=== PATIENT | female | born 1980 | race Caucasian/White ===

== ENCOUNTER 2019-08-01 23:12 | Emergency (ER) | payer BC ==
--- NOTE | 2019-08-01 23:37 | ER Document Report ---
ED General - General Chief Complaint: Shoulder Pain Stated Complaint: LEFT SHOULDER PAIN Time Seen by Provider: 08/01/19 23:36 TRAVEL OUTSIDE OF THE [place] IN LAST 30 DAYS: No - HPI Patient complains to provider of: left shoulder pain Notes: 39 y/o presenting to ED for evaluation of left shoulder pain for 1-2 months w/o known injury she notes pain started w/ overhead movements and now is present nearly constantly w/ any movement no fever, redness of skin she notes she has significant pain w/ any type of movement of the shoulder but is worse when she moves the arm forward or away from her body no elbow pain no actual injury - Related Data Allergies/Adverse Reactions: No Known Allergies Allergy (Unverified 08/01/19 23:19) Past Medical History - Social History Smoking Status: Current Every Day Smoker Chew tobacco use (# tins/day): No Frequency of alcohol use: Occasional Drug Abuse: None Family History: Reviewed & Not Pertinent Patient has suicidal ideation: No Patient has homicidal ideation: No Review of Systems - Review of Systems Constitutional: No symptoms reported EENT: No symptoms reported Cardiovascular: No symptoms reported Respiratory: No symptoms reported Gastrointestinal: No symptoms reported Genitourinary: No symptoms reported Female Genitourinary: No symptoms reported Musculoskeletal: Other - left shoulder pain Skin: No symptoms reported Hematologic/Lymphatic: No symptoms reported Neurological/Psychological: No symptoms reported Physical Exam - Vital signs Vitals: Temp Pulse Resp BP Pulse Ox 97.8 F 100 20 174/100 H 100 08/01/19 23:15 08/01/19 23:15 08/01/19 23:15 08/01/19 23:15 08/01/19 23:15 Interpretation: Normal - General General appearance: Appears well, Alert - HEENT Head: Normocephalic, Atraumatic Eyes: Normal Pupils: PERRL - Respiratory Respiratory status: No respiratory distress Chest status: Nontender Breath sounds: Normal Chest palpation: Normal - Cardiovascular Rhythm: Regular Heart sounds: Normal auscultation Murmur: No - Abdominal Inspection: Normal Distension: No distension Bowel sounds: Normal Tenderness: Nontender Organomegaly: No organomegaly - Back Back: Normal, Nontender - Extremities General upper extremity: Normal inspection, Nontender, Normal color, Normal ROM, Normal temperature General lower extremity: Normal inspection, Nontender, Normal color, Normal ROM, Normal temperature, Normal weight bearing. No: Bryce's sign Shoulder: Other - Lt shoulder - limited ROM secondary to pain. no warmth or redness. good pulses and sensation in LUE. she is able to attempt abd/adduction and extension/flexion but all w/ pain. no clavicle pain - Neurological Neuro grossly intact: Yes Cognition: Normal Orientation: AAOx4 [place] Coma Scale Eye Opening: Spontaneous [place] Coma Scale Verbal: Oriented [place] Coma Scale Motor: Obeys Commands [place] Coma Scale Total: 15 Speech: Normal Motor strength normal: LUE, RUE, LLE, RLE Sensory: Normal - Psychological Associated symptoms: Normal affect, Normal mood - Skin Skin Temperature: Warm Skin Moisture: Dry Skin Color: Normal Course - Re-evaluation Re-evalutation: 08/01/19 23:53 will give im toradol/steroid and obtain xray explained she will need to see ortho as outpt for her pain and likely needs MRI 08/02/19 00:45 XR L shoulder - no fracture, alignment normal - Vital Signs Vital signs: Temp Pulse Resp BP Pulse Ox 97.8 F 100 20 174/100 H 100 08/01/19 23:15 08/01/19 23:15 08/01/19 23:15 08/01/19 23:15 08/01/19 23:15 - Diagnostic Test Radiology reviewed: Image reviewed Procedures - Immobilization Left Shoulder Pre-Proc Neuro Vasc Exam: Normal Immobilizer type: Sling Discharge - Discharge Clinical Impression: Elevated blood pressure reading Shoulder pain, left Qualifiers: Chronicity: acute Qualified Code(s): M25.512 - Pain in left shoulder Condition: Stable Disposition: HOME, SELF-CARE Instructions: Shoulder Injury ([facility]) Additional Instructions: follow up with orthopedic - call for next available appointment return to the ED with worsening Prescriptions: Hydrocodone/Acetaminophen [[place] 5-325 mg Tablet] 1 tab PO Q6HP PRN #8 tablet PRN Reason: Forms: Elevated Blood Pressure Referrals: THIEN RUELAS MD [ACTIVE STAFF] - Follow up as needed
[2019-08-01] MEDS ORDERED: KETOROLAC TROMETHAMINE 60 MG/2 ML SDV IM ONE (23:45)
[2019-08-01] MEDS ORDERED: METHYLPREDNISOLONE ACETATE INJ 80 MG/1 ML VIAL IM ONE (23:45)
[2019-08-02 01:01] VITALS: BP 145/95
--- NOTE | 2019-08-02 01:03 | RADIOLOGY REPORT (SQ) ---
CLINICAL HISTORY: pain COMPARISON: None. 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 Joint spaces are preserved. There is a small calcification within the upper aspect of the glenohumeral joint. This is indeterminate, may relate to rotator cuff calcifications. IMPRESSION: No acute osseous findings.
== END 2019-08-02 00:59 | disposition home or self-care (01) ==
LOC: ER 23:12
DX: M25.512 Pain in left shoulder (principal); R03.0 Elevated blood-pressure reading, without diagnosis of hypertension; F17.200 Nicotine dependence, unspecified, uncomplicated
CPT/HCPCS: 73030; J1885; J1040